=== PATIENT | male | born 1995 | race African-American/Black ===

== ENCOUNTER 2016-09-05 12:29 | Emergency (ER) | payer OTHER ==
[~2016-09-05] VITALS: Ht 182.9 cm; Wt 104.0 kg
[~2016-09-05 12:29] MED LIST: TYLENOL WITH C1 EACH PO; ZOFRAN4 MG PO
[2016-09-05 14:12] LABS: MCH 28.6 PG (29.0-34.0); MCHC 33.1 G/DL (30.0-36.0); MCV 86.4 FL (86-99); MEAN PLAT.VOLUME 9.9 uM^3 (9.0-12.4); PLATELET COUNT 306 K/uL (156-360); RBC DIS.WIDTH-CV 12.1 % (11.8-14.6); RBC DIS.WIDTH-SD 38.3 % (39-53); RED BLOOD COUNT 5.21 M/uL (4.00-5.50); WHITE BLOOD COUNT 5.9 K/uL (4.1-10.2)
[2016-09-05 14:20] LABS: CHLORIDE 110 mEq/L (99-109); POTASSIUM 4.3 mEq/L (3.7-5.4)
[2016-09-05 14:21] LABS: SODIUM 140 mEq/L (136-147)
[2016-09-05 14:23] LABS: GLUCOSE 103 mg/dL (70-99)
[2016-09-05 14:24] LABS: ANION GAP 7 MEQ/L (2-14)
[2016-09-05] MEDS ORDERED: NAPROSYN500 MG PO (14:24)
[2016-09-05 14:25] LABS: TOTAL BILIRUBIN 0.5 mg/dL (0.0-1.0)
[2016-09-05 14:26] LABS: ALKALINE PHOSPHATASE 46 IU/L (3-129); GFR ESTIMATE (CALCULATED) > 59 mL/min/
[2016-09-05 14:28] LABS: UREA NITROGEN (BUN) 10 mg/dL (9-23)
[2016-09-05] MEDS ORDERED: COLCHICINE0.6 M1 PO (15:09)
[2016-09-05 15:15] VITALS: BP 113/74
== END 2016-09-05 15:16 | disposition home or self-care (01) ==
LOC: EME 12:29
PROVIDERS: Nurse Practitioner Family
DX: M10.9 Gout, unspecified (principal)
CPT/HCPCS: 80053; 85027; 99281; 99284